=== PATIENT | male | born 1975 | race Caucasian/White ===

== ENCOUNTER 2023-11-26 07:58 | Emergency (ER) | payer OTHER, SELFPAY ==
[2023-11-26 08:03] VITALS: BP 158/91; PULSE 107; RESP 18; TEMP 36.7; O2SAT 100; BMI 24.3
--- NOTE | 2023-11-26 08:03 | ECG_ITS ---
[facility] Test Date: 2023-11-26 Pat Name: Ck Tucker Department: Room: Gender: Male [employer] Supervisor: : 1975 Requested By: Robert Greco Order Number: [id number] Shahida MD: Amor Truong M.D. Measurements Intervals [place] Rate: 103 P: 63 [place]: 180 QRS: 69 QRSD: 131 T: 62 QT: 360 QTc: 473 Interpretive Statements SINUS TACHYCARDIA INTRAVENTRICULAR CONDUCTION DELAY [130+ ms QRS DURATION] No previous ECG available for comparison Electronically Signed On 11-26-2023 23:00:56 CDT by Amor Truong M.D. [id number]
--- NOTE | 2023-11-26 08:29 | XR_ITS ---
WS: [id number] XR chest 1V portable [id number] REASON FOR EXAM: dyspnea/cough FINDINGS: No comparison examination. Mild tortuosity of the thoracic aorta and normal heart size. Calcified granulomatous disease in both hemithoraces. No active pulmonary parenchymal or pleural disease is identified. Moderate degenerative spondylosis in the mid and lower thoracic spine. XR/XR chest 1V portable [id number] IMPRESSION: No acute chest abnormality.
--- NOTE | 2023-11-26 08:31 | ED_ITS ---
HPI - Arrhythmia/Palpitations 2 General: Chief Complaint: Arrhythmia/Palpitations Stated Complaint: left arm pain Time Seen by Provider: 11/26/23 08:07 Source: patient Mode of arrival: ambulatory History of Present Illness: 48-year-old male presents emergency room complaining of rapid irregular heart rate feels palpitations extremely anxious. He had dizzy and lightheaded. He does regularly use kratom and has for several years. He had an Apple Watch on the Apple Watch told him he was in atrial fibrillation. He had an episode yesterday where he got lightheaded dizzy and a little bit diaphoretic. He has no known coronary artery disease no previous evaluations. He does use kratom regularly. He has as needed Xanax and Klonopin but he has not been taking it recently. MD complaint: rapid heart beat and heart racing Associated symptoms: Reports anxiety; Deny cough, diaphoresis, muscle cramps, nausea, paresthesias, pre-syncope, sense of impending doom, short of breath, syncope or vomiting Review of Systems 2 Const: Denies: diaphoresis Card: Denies: syncope or pre-syncope Resp: Denies: dyspnea GI: Denies: nausea or vomiting : Denies: dysuria, urinary frequency or urinary urgency Musc: Denies: muscle cramps Skin/Breast: Denies: rash Psych: Reports: anxiety Physical Exam 2 Const: COMMON NORMALS: no acute distress GENERAL APPEARANCE: cooperative and comfortable ORIENTATION/CONSCIOUSNESS: Yes awake, Yes oriented to person, Yes oriented to place and Yes oriented to time HENMT: COMMON NORMALS: normocephalic, atraumatic and hearing grossly normal bilaterally HEAD & SCALP: normocephalic and atraumatic Resp: COMMON NORMALS: normal respiratory effort, No retractions, No use of accessory muscles and clear to auscultation bilaterally AUSCULTATION: clear to auscultation bilaterally Cardio: COMMON NORMALS: regular rate, regular rhythm and No murmurs present (Cardio) RATE: regular rate RHYTHM: regular rhythm GI: COMMON NORMALS: Soft to palpation and No hepatosplenomegaly present A USCULTATION: Yes normoactive bowel sounds PALPATION: Yes Soft to palpation, No Tenderness to palpation present (GI), No Guarding due to palpation present (GI) and Yes No hepatosplenomegaly present Extremity: COMMON NORMALS: normal to inspection, capillary refill normal, no clubbing, cyanosis or edema, no calf tenderness and no pedal edema Neuro: SENSORIUM/ORIENTATION: Yes oriented to person, Yes oriented to place and Yes oriented to time Skin: COMMON NORMALS: no rashes or lesions noted GENERAL SKIN EXAM: no rashes or lesions noted Course 2 Vital Signs: Vital signs: Vital Signs Temperature 98.0 F 11/26/23 08:03 Pulse Rate 88 11/26/23 11:00 Respiratory Rate 18 11/26/23 11:00 Blood Pressure 119/82 11/26/23 11:00 Pulse Oximetry 97 11/26/23 11:00 Oxygen Delivery Me thod Room Air 11/26/23 09:38 MDM - Arrhythmia/Palpitations Medical Decision Making EKG does not show any acute ST changes no arrhythmias. Patient is in sinus tachycardia initially no sinus rhythm without acute ST changes troponins unremarkable. Will discharge patient home set him up for a 48-hour Holter monitor as well as a cardiac stress test recommend patient take baby aspirin daily. Return if has further problems Medical Records I reviewed the patient's medical records. Lab Data I reviewed the patient's lab results. 11/26/23 08:10 11/26/23 08:10 Radiology Impressions Chest X-Ray 11/26/23 08:29 IMPRESSION: No acute chest abnormality. Laboratory Results WBC 7.97 10^3/uL (3.29-11.43) 11/26/23 08:10 RBC 4.52 10^6/uL (3.85-5.65) 11/26/23 08:10 Hgb 13.50 g/dL (11.27-16.99) 11/26/23 08:10 Hct 39.1 % (37-53) 11/26/23 08:10 MCV 86.5 fl (82-101) 11/26/23 08:10 MCH 29.9 pg (27-33) 11/26/23 08:10 MCHC 34.5 g/dL (30-55) 11/26/23 08:10 RDW 13.1 % (12.1-15.1) 11/26/23 08:10 Plt Count 177 10^3/cmm (157-399) 11/26/23 08:10 MPV 11.7 fL (7.4-10.4) H 11/26/23 08:10 Neut % (Auto) 37.1 % 11/26/23 08:10 Lymph % (Auto) 43.3 % 11/26/23 08:10 [place] % (Auto) 10.0 % 11/26/23 08:10 Eos % (Auto) 8.7 % 11/26/23 08:10 Baso % (Auto) 0.6 % 11/26/23 08:10 Neut # (Auto) 2.96 10^3/uL (1.8-7.7) 11/26/23 08:10 Lymph # (Auto) 3.5 10^3/uL (0.8-4.8) 11/26/23 08:10 [place] # (Auto) 0.8 10^3/uL (0.2-0.9) 11/26/23 08:10 Eos # (Auto) 0.7 10^3/uL (0.0-0.8) 11/26/23 08:10 Baso # (Auto) 0.1 10^3/uL (0.0-0.1) 11/26/23 08:10 Nucleated RBC % (auto) 0 % 11/26/23 08:10 Nucleated RBCs # 0.0 /100WBC 11/26/23 08:10 Sodium 138 mmol/L (136-145) 11/26/23 08:10 Potassium 3.6 mmol/L (3.5-5.1) 11/26/23 08:10 Chloride 102 mmol/L (98-107) 11/26/23 08:10 Carbon Dioxide 23 mmol/L (22-29) 11/26/23 08:10 Anion Gap 16.6 (5-19) 11/26/23 08:10 BUN 7 mg/dL (6-20) 11/26/23 08:10 Creatinine 0.7 mg/dL (0.7-1.2) 11/26/23 08:10 GFR Calculation 119.9 mL/min (90-130) 11/26/23 08:10 Glucose 136 mg/dL (65-115) H 11/26/23 08:10 Calculated Osmolality 286 mOsm/kg (285-295) 11/26/23 08:10 Calcium 9.2 mg/dL (8.5-10.5) 11/26/23 08:10 Total Bilirubin 0.2 mg/dL (0.15-1.2) 11/26/23 08:10 AST 18 U/L (0-40) 11/26/23 08:10 ALT 24 U/L (0-41) 11/26/23 08:10 Alkaline Phosphatase 77 U/L (40-130) 11/26/23 08:10 Creatine Kinase 104 U/L (39-308) 11/26/23 08:10 Troponin T Baseline < 6 ng/L (0-15) 11/26/23 08:10 Troponin T 120 Minute 6.00 ng/L (0-15) 11/26/23 10:23 Delta Troponin T 0.05013 ABS# (0-10) 11/26/23 10:23 Total Protein 6.9 g/dL (6.6-8.7) 11/26/23 08:10 Albumin 4.3 g/dL (3.5-5.2) 11/26/23 08:10 Globulin 2.6 g/dL (1.3-4.6) 11/26/23 08:10 TSH 2.11 uIU/mL (0.27-4.20) 11/26/23 08:10 All radiology interpretation(s) finalized by discharge Discharge Plan Discharge Patient Disposition: Home Clinical Impression: Palpitations, Atypical chest pain Condition: Stable Prescriptions: New aspirin 81 mg tablet,delayed release (DR/EC) 81 mg PO DAILY Qty: 30 0RF Discontinued Kratom See Rx Instructions .ROUTE .COMPLEX Rx Instructions: as directed No Action zinc acetate 25 mg (zinc) Capsule 25 mg PO DAILY Vitamin C 500 mg Tablet Extended Release 500 mg PO DAILY Vitamin D3 25 mcg (1,000 unit) Capsule 25 mcg PO DAILY turmeric 400 mg Capsule 400 mg PO DAILY Discharge Orders: Discharge ED (Routine); Ordered 11/26/23 Ordered By: Robert Bennett Referrals: Amalia Garibay, [Primary Care Provider] - Discharge Diet: Usual diet Discharge Activity: Resume usual activity Patient Instructions: Opioid Safety, Pain Management Activity Restrictions/Additional Instructions: Thank you for choosing [facility] for your healthcare needs today. Please realize this is an emergency room and that we are providing you with a medical screening exam and this may not be complete and all inclusive of all the testing and or work up that you may need to determine your ailment or severity of your illness. It is very important that you follow up as instructed or that you return to the Emergency Department should you have concerns or if your condition changes or worsens in any way. You were seen today for palpitations complaint of some chest discomfort. Your cardiac enzymes and EKG were normal. Your chest EKG showed normal sinus rhythm no atrial fibrillation. Will set you up for a 48-hour Holter monitor to evaluate for the palpitations and a cardiac stress test. Return for you have further problems. Do recommend to take baby aspirin daily Coding Level of Care Code ED [employer]person [employer] for [employer]
[2023-11-26 08:38] VITALS: BP 130/87; PULSE 88; O2SAT 100
[2023-11-26] MEDS: aspirin 81 mg Chew Tablet 324 MG PO (08:39)
[2023-11-26 08:54] LABS: Basophils # 0.1 10^3/uL (0.0-0.1); Basophils % 0.6 %; Eosinophils # 0.7 10^3/uL (0.0-0.8); Eosinophils % 8.7 %; Hematocrit 39.1 % (37-53); Lymphocytes # 3.5 10^3/uL (0.8-4.8); Lymphocytes % 43.3 %; Mean Corpuscular HGB Conc 34.5 g/dL (30-55); Mean Corpuscular Hemoglobin 29.9 pg (27-33); Mean Corpuscular Volume 86.5 fl (82-101); Mean Platelet Volume 11.7 fL (7.4-10.4); Monocytes # 0.8 10^3/uL (0.2-0.9); Neutrophils # 2.96 10^3/uL (1.8-7.7); Neutrophils % 37.1 %; Nucleated Red Blood Cells % 0 %; Platelet Count 177 10^3/cmm (157-399); Red Blood Count 4.52 10^6/uL (3.85-5.65); Red Cell Distribution Width 13.1 % (12.1-15.1); White Blood Count 7.97 10^3/uL (3.29-11.43)
[2023-11-26 08:59] LABS: Troponin(5th) Baseline < 6 ng/L (0-15)
[2023-11-26 09:14] LABS: Alanine Aminotransferase 24 U/L (0-41); Albumin Level 4.3 g/dL (3.5-5.2); Alkaline Phosphatase 77 U/L (40-130); Aspartate Amino Transferase 18 U/L (0-40); Blood Urea Nitrogen 7 mg/dL (6-20); Calcium 9.2 mg/dL (8.5-10.5); Carbon Dioxide 23 mmol/L (22-29); Chloride 102 mmol/L (98-107); Creatine Phosphokinase 104 U/L (39-308); Creatinine Clr Calc Pharmacy 151.2933; Globulin 2.6 g/dL (1.3-4.6); Glomerular Filtration Rate 119.9 mL/min (90-130); Glucose 136 mg/dL (65-115); Osmolality Calculated 286 mOsm/kg (285-295); Sodium 138 mmol/L (136-145); Thyroid Stimulating Hormone 2.11 uIU/mL (0.27-4.20); Total Bilirubin 0.2 mg/dL (0.15-1.2); Total Protein 6.9 g/dL (6.6-8.7)
[2023-11-26 09:15] LABS: Anion Gap 16.6 (5-19); Potassium 3.6 mmol/L (3.5-5.1)
[2023-11-26 09:38] VITALS: BP 119/80; PULSE 88; RESP 16; O2SAT 100
--- NOTE | 2023-11-26 10:29 | ECG_ITS ---
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 Measurements Intervals [place] Rate: 78 P: 47 [place]: 156 QRS: 60 QRSD: 126 T: 62 QT: 377 QTc: 430 Interpretive Statements SINUS RHYTHM Compared to ECG 11/26/2023 08:03:36 Sinus tachycardia no longer present Intraventricular conduction delay no longer present Electronically Signed On 11-26-2023 23:11:54 CDT by Amor Truong M.D. [id number]
[2023-11-26 11:00] VITALS: BP 119/82; PULSE 88; RESP 18; O2SAT 97
[2023-11-26 11:09] LABS: Troponin 5 2HR Delta 0.00001 ABS# (0-10)
--- NOTE | 2023-11-30 08:15 | DCPLANNER ---
Message sent to cardiology for a 48 holtor monitor
--- NOTE | 2023-12-01 08:09 | DCPLANNER ---
Exercise stess test out patient order sent to Centralized scheduling
== END 2023-11-26 12:55 | disposition home or self-care (01) ==
PROVIDERS: Emergency Provider Family Medicine; PCP Family Medicine
DX: R00.2 Palpitations (principal); R07.89 Other chest pain
CPT/HCPCS: 36415; 71045; 80053; 82550; 84443; 84484; 85025; 93005; 99285